=== PATIENT | female | born 1990 | race Caucasian/White ===

== ENCOUNTER → 2017-02-15 | Outpatient (CLI) | payer BC ==
[~2017-02-15] MED LIST: CEPHALEXIN500 M1 PO; CLINDAMYCIN HC300 MG PO; HYDROCODONE BIT1 T11 PO
[2017-02-15 13:44] LABS: HEMOGLOBIN A1c 6.3 % (4.8-5.6)
== END | disposition home or self-care (01) ==
LOC: LAB 12:31
PROVIDERS: Family Medicine
DX: R73.9 Hyperglycemia, unspecified (principal)